=== PATIENT | male | born 1945 | race Caucasian/White ===

== ENCOUNTER 2016-10-20 15:01 | Inpatient (IN) | payer OTHER ==
[~2016-10-20] VITALS: Ht 177.8 cm; Wt 69.6 kg
--- NOTE | ~2016-10-20 | WRIGHTHP ---
[place], [place] PATIENT HISTORY AND PHYSICAL EXAM NAME: [id number] UNIT #: [id number] ROOM: 404 DOCTOR: SANDRA CHARLES MD BIRTHDATE: [birth year] DOS: 10/20/2016 HISTORY OF PRESENT ILLNESS: 1. A 71-year-old gentleman with a past medical history of benign essential hypertension, generalized anxiety disorder, major depression, recurrent GERD and esophagitis, diverticulosis. 2. Mixed hyperlipidemia. 3. History of pneumonia in the past. 4. Hiatal hernia. The patient presented to the Emergency Department with increasing shortness of breath and cough, and was seen by Luis Everett. The symptoms are getting worse for about a week and he was found to have a left lower lobe pneumonia. The patient was diagnosed as having community-acquired pneumonia, dehydration and sepsis and recommended for admission and further management. After admission, the patient is feeling somewhat better, but he is still short of breath, no chest pains, no other GI or urinary symptoms. REVIEW OF SYSTEMS: LUNGS: Shortness of breath and cough. GASTROINTESTINAL: No nausea, vomiting, diarrhea, constipation. CARDIOVASCULAR SYSTEM: No palpitation, no chest pains. SOCIAL HISTORY: Lives with his brother and has two children. Denies smoking cigarettes, alcohol and drug abuse. FAMILY HISTORY: Noncontributory. HOME MEDICATIONS: Simvastatin, Flomax, finasteride, aspirin, Protonix, diltiazem, dicyclomine and lorazepam. ALLERGIES: KNOWN ALLERGIES TO SULFA AND BUSPAR. PHYSICAL EXAMINATION: GENERAL: Alert and oriented, but a very poor historian. Very weak and pale looking gentleman, somewhat short of breath, but in no visible distress. VITAL SIGNS: Blood pressure 106/47, heart rate 86 beats per minute, with respiratory rate as fast as 24 per minute and rectal temperature 99.6 degrees Fahrenheit. HEENT AND NECK: Extraocular movements are intact. Sclerae are anicteric. Oral mucosa is moist and clean. No obvious facial weakness. Neck is supple without any lymphadenopathy. No thyromegaly. No JVD. No carotid arterial bruits. LUNGS: Left lower lung crackles on lung auscultation. CARDIOVASCULAR SYSTEM: Heart rate is regular in rate and rhythm. S1 and S2 normally audible. No significant murmur or any other abnormal cardiac sounds. ABDOMEN: Soft, nontender. No obvious organomegaly. Bowel sounds are present. No obvious herniation. EXTREMITIES: Without significant cyanosis or edema. Warm to touch. CENTRAL NERVOUS SYSTEM: Alert and oriented x 3. Cranial nerves II-XII are intact. Speech is normal. The patient is able to move all extremities. Normal [place], [place] PATIENT HISTORY AND PHYSICAL EXAM NAME: RAVINDER HERNÁNDEZ UNIT #: [id number] ROOM: [facility] DOCTOR: SANDRA CHARLES MD BIRTHDATE: [birth year] muscle strength. Deep tendon reflexes are equal on both sides. Plantars were downgoing. LABORATORY DATA: White cell count 26,700, hemoglobin 10.8, normal platelets. Normal serum electrolytes. Sugars are elevated to 201; 101 at admission. BUN and creatinine elevated at 28 and 1.7. The patient to be treated with IV antibiotics, ceftriaxone and azithromycin and also obtaining consult with Dr. Oconnor, the residential leasing agent. The patient's severe leukocytosis, which will be followed and patient being monitored closely in the [facility] [place]. IMPRESSION: 1. Left lower lobe pneumonia, being treated with antibiotics and the patient is somewhat hypoxemic, saturating 92%-94% at room air without any known lung disease. 2. Mixed hyperlipidemia treated with simvastatin. 3. BPH and urinary retention treated with finasteride and Flomax. 4. Gastroesophageal reflux disease and esophagitis treated with Protonix. 5. Benign essential hypertension treated with diltiazem, which has been continued and blood pressures are being monitored. 6. Generalized anxiety disorder, being treated and controlled with lorazepam at home, which is being continued. SANDRA CHARLES MD CM:HISPHYS:PATIENT HISTORY AND PHYSICAL EXAMINATION 05 11 SANDRA CHARLES MD 10/21/16 2011 interface
--- NOTE | ~2016-10-20 | PR ---
[place], [place] PROGRESS NOTE NAME: RAVINDER HERNÁNDEZ UNIT #: [id number] ROOM: 404 DOCTOR: AUSTIN LANDRY MD BIRTHDATE: [birth year] DOS: 10/24/2016 SUBJECTIVE: The patient is feeling better, does not have any new complaints. He still has a cough, but overall there is some improvement. OBJECTIVE: VITAL SIGNS: Graphics show a pressure of 148/63, pulse of 170, respirations 20, temperature 98.5. LUNGS: Diminished breath sounds. HEART: Regular. ABDOMEN: Soft. EXTREMITIES: Without any edema. Intake, output for the last 24 hours is positive balance of 319 mL. LABS: BMP: Glucose 94, BUN 15, creatinine 1.05. Electrolytes normal. WBC count is 19.6, hemoglobin 11.8, hematocrit 36.6, platelets 512, myelocytes 2, metamyelocytes 3. ASSESSMENT AND PLAN: The patient with a large left lower lobe pneumonia, possible gram negative. The patient continues to be on multiple antibiotics because of low elevation of white cell count and possible systemic inflammatory response. Blood culture so far shows no bacterial growth. Continue the same antibiotics. If the white cell count comes down tomorrow and the chest x-ray shows improvement, then the plan will be to possible discharge him to home tomorrow. AUSTIN LANDRY MD CM:PNTRANS [id number] AUSTIN LANDRY MD 11/26/16 1331 interface
--- NOTE | ~2016-10-20 | PR ---
[place], [place] PROGRESS NOTE NAME: RAVINDER HERNÁNDEZ UNIT #: [id number] ROOM: 404 DOCTOR: CLAUDETTE SCHMITT MD BIRTHDATE: [birth year] DOS: 10/24/2016 SUBJECTIVE: The patient was seen and examined on 10/24/2016. He has been noted with gradual reduction in respiratory symptoms. The patient denies symptoms of abdominal pain. The chest pain has been gradually subsiding. Denies any symptoms of abdominal pain. The patient was also described in reduction of the overall debility symptoms as well with generalized weakness and fatigue. There were no symptoms of hemoptysis. OBJECTIVE: VITAL SIGNS: Normal temperature, respiratory rate 20, heart rate of 82, blood pressure 120/66. Pulse oxygen saturation on room air was 93% saturation. HEENT: Showed no new change. NECK: Supple. CARDIOVASCULAR: S1, S2 audible. LUNGS: Noted without any wheezing. Decreased breath sounds are noted in the left lower lung. ABDOMEN: Soft, nontender. LABORATORY DATA: Cultured the sputum preliminary show normal sathish other noted normal sathish yesterday. BMP this morning were noted as normal. CBC: WBC count 19.6, hemoglobin 11.8, hematocrit 36.6, platelet count 512,000. IMPRESSION: 1. Acute large pneumonia with atypical consolidation in the left lower lobe for this patient still noted with leukocytosis with gradual reduction. 2. The patient with early exacerbation of chronic obstructive pulmonary disease. PLAN OF TREATMENT: Continue antibiotics, bronchodilators, oxygen supplementation. Monitor white cell count. Chest x-ray of the patient was ordered to be repeated on this patient for assessment of the pneumonia progression to make final recommendations on the patient discharge, the antibiotics and other treatment. In the meantime, continue other treatment plan and management and supportive care. [place], [place] PROGRESS NOTE NAME: RAVINDER HERNÁNDEZ UNIT #: [id number] ROOM: 404 DOCTOR: CLAUDETTE SCHMITT MD BIRTHDATE: [birth year] CLAUDETTE TURPIN MD CM:PNTRANS [id number] CLAUDETTE LOYOLA MD 10/25/16 0415 interface
--- NOTE | ~2016-10-20 | PR ---
[place], [place] PROGRESS NOTE NAME: RAVINDER HERNÁNDEZ UNIT #: [id number] ROOM: 404 DOCTOR: CLAUDETTE SCHMITT MD BIRTHDATE: [birth year] DOS: 10/23/2016 PULMONARY PROGRESS NOTE SUBJECTIVE: He has been noted comfortable at this time. Still noted cough with intermittent small amount of sputum expectoration at time. Shortness of breath has been improving. Denies any symptoms of hemoptysis. The chest pain of the patient has been still present, not completely resolved as well. OBJECTIVE: VITAL SIGNS: For the patient, which have been recorded show the temperature of the patient noted as normal, respiratory rate 20, heart rate 95-103, blood pressure 113/57-150/80. Intake for this patient is 1000, output 970 mL. Pulse oxygen saturation on room air 97% saturation. HEENT: Examination shows head was atraumatic. Eyes nonicterus. NECK: Supple. CARDIOVASCULAR SYSTEM: S1, S2 audible. LUNGS: Decreased breath sounds in the left lower lung base. ABDOMEN: Soft, nontender. LABORATORY DATA: Culture of the sputum was noted normal sathish. CBC of the patient on 10/23/2016, WBC count 19.8, hemoglobin 10, hematocrit 30.7, and platelet count 415,000. IMPRESSION: The patient with resolving leukocytosis with acute large pneumonia consolidation, rule out underlying malignancy as well in the left lower lobe with acute exacerbation of chronic obstructive pulmonary disease as well. Chest pain related to current acute pneumonia. PLAN OF TREATMENT: Continue current antibiotic of vancomycin for the coverage of gram-positive organisms. Monitor leukocytosis. Continue bronchodilators for early COPD exacerbation. Supportive therapy, plan of management, other care. The patient might require the antibiotics as an outpatient for about 10-14 days and then reassessment to determine resolution of the current problem or any further workup if necessary for the patient and current abnormality. Left lower lobe abnormality. [place], [place] PROGRESS NOTE NAME: RAVINDER HERNÁNDEZ UNIT #: [id number] ROOM: 404 DOCTOR: CLAUDETTE SCHMITT MD BIRTHDATE: [birth year] CLAUDETTE TURPIN MD CM:PNTRANS [id number] CLAUDETTE LOYOLA MD 11/26/16 1333 interface
--- NOTE | ~2016-10-20 | PR ---
[place], [place] PROGRESS NOTE NAME[id number] UNIT #: [id number] ROOM: 404 DOCTOR: PAPI LOYOLA MD,CLAUDETTE BIRTHDATE: [birth year] DOS: 10/22/2016 PULMONARY FOLLOWUP NOTE SUBJECTIVE: He has been noted with reduction of the sputum expectoration. Shortness of breath for the patient has been noted to have decreased. There were no symptoms of chest pain at the present time. He had a CT scan of the chest that was completed yesterday for assessment of the left lower lobe. The patient denies any symptoms of hemoptysis. OBJECTIVE: VITAL SIGNS: Show normal temperature, respirations 18, heart rate 96, blood pressure 110/68. Intake 3500 mL over 900 mL recorded. Pulse oxygen saturation on room air 92% saturation. HEENT: Examination shows head was atraumatic. Eyes nonicteric. NECK: Supple. CARDIOVASCULAR: S1, S2 audible. LUNGS: Noted with decreased breath sounds in the lower portion of the lungs bilaterally. ABDOMEN: Soft, nontender. LABORATORY DATA: The patient's CBC today: WBC count 30,000, hemoglobin 10.4, hematocrit 32.8, platelet count was normal, 95% segmented neutrophils were noted. The culture of the sputum preliminary showing normal sathish from yesterday. The Gram stain was reported with many white blood cells, few epithelial cells, moderate gram-positive cocci in pairs and chains, and few gram-positive cocci in clusters. IMAGING: CT scan, which has been done for the patient yesterday without contrast, was reviewed, shows evidence of patchy infiltration in left lobe and large area of consolidation with mass-like appearance in the left lower lobe was still noted. Evidence of emphysema change noted. Lack of the contrast of the patient would rather result in limited assessment of the mediastinum, however, there was no gross lymphadenopathy noted. IMPRESSION: 1. The patient who has been currently noted with significant leukocytosis, which has been noted worsened, with acute exacerbation of chronic obstructive pulmonary disease as well as acute pneumonia, currently treated for this patient with intravenous antibiotics. Possibility of mass lesion cannot be completely excluded with current CT scan of the chest appearance. This finding needs to be closely monitored until resolution to exclude any underlying malignancy in that area. 2. Failed outpatient treatment. PLAN OF TREATMENT: The patient will be continued on current treatment with antibiotics. Monitor respiratory status, monitoring of the cultures. Supportive plan and management, other therapy care. Usual treatment. Supportive care. Continuation of bronchodilators as well. Continuation of current antibiotic combination for this patient, and the patient was started on [place], [place] PROGRESS NOTE NAME: RAVINDER HERNÁNDEZ UNIT #: [id number] ROOM: 404 DOCTOR: PAPI LOYOLA MD,CLAUDETTE BIRTHDATE: [birth year] IV vancomycin as well for additional coverage for gram-positive organisms including community-acquired MRSA. CLAUDETTE TURPIN MD CM:PNTRANS [phone] CLAUDETTE LOYOLA MD 10/23/16 0201 interface
--- NOTE | ~2016-10-20 | PR ---
[place], [place] PROGRESS NOTE NAME: [facility]Z [id number] UNIT #: [id number] ROOM: 404 DOCTOR: PAPI LOYOLA MD,CLAUDETTE BIRTHDATE: [birth year] DOS: 10/25/2016 SUBJECTIVE: The patient seen and examined on 10/25/2016. He has been noted with a cough, which has not been completely resolved, but decreased. The chest pain, the patient has been subsiding. He denies symptoms of hemoptysis. OBJECTIVE: VITAL SIGNS: The vital signs of the patient which has been recorded showed the temperature of the patient noted as normal. The respiratory rate of the patient recorded as normal. The respiratory rate of the patient recorded as 18, heart rate 81, blood pressure 122/70-131/64. HEENT: Examination shows head was atraumatic. Eyes: No icterus. NECK: Supple. CARDIOVASCULAR: S1, S2 audible. LUNGS: Noted without any wheeze or crackles at the present time. Breaths are noted mildly decreased bilaterally. ABDOMEN: Soft, nontender. LABORATORY DATA: The chest x-ray of the patient that was done this morning still shows abnormal density in the right lower lobe. IMPRESSION: The patient with recurrent acute suspected pneumonia, rule out malignancy in the left lower lobe. Symptomatically, he has noted improvement, still noted leukocytosis. WBC count of 20.3. PLAN OF TREATMENT: Using antibiotics orally as an outpatient for the next 10 days and outpatient followup will be suggested. The patient will be continued on the previous treatment that he has taken previously for his COPD as well. Further intervention or assessment of the patient will be planned based on the progression of the illness as an outpatient. CLAUDETTE TURPIN MD CM:TAMMI [id number] CLAUDETTE LOYOLA MD 11/26/16 1329 interface
--- NOTE | ~2016-10-20 | PR ---
[place], [place] PROGRESS NOTE NAME: RAVINDER HERNÁNDEZ UNIT #: [id number] ROOM: 404 DOCTOR: AUSTIN LANDRY MD BIRTHDATE: [birth year] DOS: SUBJECTIVE: The patient states that he could not sleep at night because of the continued coughing, is mostly dry, brings up a small amounts of mucus at times. He denies having any fever or chills. Shortness of breath is better. He did order a very good breakfast this morning. OBJECTIVE: VITAL SIGNS: Blood pressure is 112/68, pulse of 96, respirations 18, temperature 97.6. LUNGS: Diminished breath sounds. No wheezes, rales or rhonchi heard this morning. HEART: Regular. ABDOMEN: Soft. EXTREMITIES: Without any edema. CT of the chest yesterday showed patchy consolidation of the left lower lobe. ASSESSMENT AND PLAN: Left lower lobe pneumonia, possible gram negative. Sputum cultures are pending. The patient is on multiple IV antibiotics, which are continued. Elevated white cell count noticed. It has gone up from initial of 20,000 on the . He did come back and went up to 26,000 and has gone up to 30,000. So, we will go ahead and start him on vancomycin IV and a consultation with Dr. Oconnor will be obtained. AUSTIN LANDRY MD CM:PNTRANS [phone] [id number] AUSTIN LANDRY MD 10/22/162228 interface
--- NOTE | ~2016-10-20 | DS ---
[place], [place] DISCHARGE SUMMARY NAME: RAVINDER HERNÁNDEZ UNIT #: [id number] ROOM: 404 DOCTOR: AUSTIN LANDRY MD BIRTHDATE: [birth year] DOS: 10/25/2016 DIAGNOSES: 1. Left lower lobe pneumonia. 2. Generalized anxiety disorder. 3. Benign hypertension. 4. Chronic obstructive pulmonary disease, panacinar emphysema. HOSPITAL COURSE: This patient is a 71-year-old was admitted to the hospital with extremely elevated white cell count of 20,000 and increased shortness of breath, possible systemic inflammatory response and shortness of breath. After admission was placed on multiple antibiotics. Blood cultures and sputum cultures were also sent they have all come back negative. Final is normal sathish on the sputum and blood culture shows no bacterial growth. White cell count continue to go up and peaked about 30,000. IV vancomycin was also added. A CT of the chest was done, which showed left lower lobe pneumonia with consolidation. Dr. Oconnor was consulted. They agreed on the treatment plan. The patient has finally slowly improving. The white cell count has to continue to trend down now it down to 20.3. His cough and shortness of breath has improved and the chest x-ray shows improvement in the left lower lobe pneumonia. So, the plan is to discharge him to home today on p.o. antibiotics, DuoNebs and nebulizer and his home meds. AUSTIN LANDRY MD CM:JESSICA [phone] AUSTIN LANDRY MD 10/25/16 182 interface
--- NOTE | ~2016-10-20 | PR ---
[place], [place] PROGRESS NOTE NAME: RAVINDER HERNÁNDEZ UNIT #: [id number] ROOM: 404 DOCTOR: AUSTIN LANDRY MD BIRTHDATE: [birth year] DOS: 10/23/2016 SUBJECTIVE: The patient is complaining of continued shortness of breath and cough. He does not feel any better since he was admitted. OBJECTIVE: VITAL SIGNS: Blood pressure is 146/71, pulse of 88, respirations 21 and temperature 97.7. LUNGS: Diminished breath sounds. HEART: Regular. ABDOMEN: Soft, nontender. EXTREMITIES: Without any edema. LABORATORY DATA: WBC count is down to 19.8. ASSESSMENT AND PLAN: 1. Left lower lobe pneumonia, possible gram-negative cultures are not available. The white cell count has been trending up all the way from admission lab of 20.2 to 30.0 yesterday. IV vancomycin was started and since then count has come down to 19.8. Dr. Oconnor is already following the patient. 2. Chronic obstructive pulmonary disease without any evidence of exacerbation. 3. Benign hypertension, controlled. The patient will continue to stay here until the white cell count normalizes. AUSTIN LANDRY MD CM:TAMMI [id number] AUSTIN LANDRY MD 10/23/16 1228 interface
--- NOTE | ~2016-10-20 | CON ---
[place], [place] REPORT OF CONSULTATION NAME: RAVINDER HERNÁNDEZ UNIT #: [id number] ROOM: 404 DOCTOR: PAPI LOYOLA MDCLAUDETTE BIRTHDATE: [birth year] DOS: 10/21/2016 PULMONARY CONSULTATION REASON FOR CONSULTATION: To assess the patient for acute pneumonia and ongoing acute respiratory complaints. HISTORY OF PRESENT ILLNESS: This is a 71-year-old white male who came into the Emergency Room for this patient as the patient was complaining of symptoms of acute shortness of breath with coughing with sputum expectoration described as brownish in color. The patient was seen by Dr. Herrera and has been prescribed antibiotics. He was also running fever at home. Shortness of breath were noted worsened. The patient has been given antibiotic, which was not showing any improvement. The patient stated he has lost about 5-6 pounds of body weight as well. He denies any symptoms of hemoptysis. He does complain of a short nonspecific pain which described in the anterior portion of the chest, which has been resolved. REVIEW OF SYSTEMS: CONSTITUTIONAL SYMPTOMS: He denies any symptoms of chills, but complains of fever and decreased appetite. The patient has lost about 5-6 pounds of body weight in the past one week. EYES: Denies any burning, redness, or tenderness. NECK, EARS, NOSE, AND THROAT SYMPTOMS: No sore throat, hoarseness, or otalgia. CARDIOVASCULAR: Denies anginal pain, edema or pain of the lower extremities or palpitations. GASTROINTESTINAL: Denies dysphagia, nausea, vomiting, diarrhea, abdominal pain, hematemesis, melena, or hematochezia. GENITOURINARY: Denies dysuria, suprapubic pain, hematuria. SKIN: No lesions or rashes. MUSCULOSKELETAL: No acute joint deformities. CENTRAL NERVOUS SYSTEM: Denies dizziness, headache, diplopia or syncopal episodes. Remaining systems were reviewed with the patient, they were noted all negative. PAST MEDICAL HISTORY: 1. The patient was known with history of gastroesophageal reflux. 2. BPH. 3. Generalized anxiety disorder. 4. Hypercholesterolemia. 5. Essential hypertension. SOCIAL HISTORY: The patient is , has three children. He has been noted with 20 years of tobacco use about quarter pack of cigarettes per day that was discontinued in 2008. The patient was rather noted with work in the [employer] and [employer] intermittently for several years. FAMILY HISTORY: Mother at 69 years old, complication of congestive heart failure. Father at 73 years old from complication of coronary artery [place], [place] REPORT OF CONSULTATION NAME: RAVINDER HERNÁNDEZ UNIT #: [id number] ROOM: 404 DOCTOR: PAPI LOYOLA MD,CLAUDETTE BIRTHDATE: [birth year] disease, and end-stage renal failure. HOME MEDICATIONS: The patient were noted use of dicyclomine, iron, finasteride, Flomax, aspirin, lorazepam, Protonix, lovastatin, multivitamin, Bentyl. DRUG ALLERGY: NOTED. 1. SULFA DRUGS. 2. BUSPAR. PHYSICAL EXAMINATION: GENERAL: This is a 71-year-old white male who has been currently noted awake and alert without any distress. VITAL SIGNS: Height for noted 5 feet 10 inches, weight of 153 pounds, BMI 22.0. Vital signs showed the temperature highest of 99.6 degree Fahrenheit to normal temperature, respiratory rate range between 24-20, heart rate of 75-83, blood pressure 110/59-98/56. The pulse oxygen saturation for the patient recorded as saturation on room air 95% saturation. Intake is 900, the output 750 mL. HEENT: Examination shows head was atraumatic. Eyes: No icterus. Neck was supple. CARDIOVASCULAR: S1, S2 audible. NEUROLOGIC: Cranial nerves 2-12 intact. No focal deficit. MUSCULOSKELETAL: No deformities. SKIN: No lesions or rashes. LABORATORY DATA: Lactic acid 0.7 on admission. Rapid Influenza A and B, nasal washing antigen negative on 10/20/2016. CBC on 10/20/2016, WBC count 20.2, hemoglobin 11.8, hematocrit 35.7, platelet count was normal. The CMP for this patient on 10/20/2016, BUN of 28, creatinine 1.74, glucose was normal, sodium 135. BMP of the patient this morning, glucose 201, BUN and creatinine was normal. Remaining electrolytes normal. CBC this morning, WBC count 26.7, hemoglobin 10.8, hematocrit 32.9, platelet count 270,000, 90% segmented neutrophils. Gram stain of the sputum for this patient shows many white blood cells, few epithelial cells, moderate gram-positive cocci in pairs and chains with few gram-positive cocci in clusters. The chest x-ray of the patient that was done for this patient on 10/20/2016 on admission was reviewed, shows evidence of consolidation in the left lower lobe of the patient with rounded configuration. Prominent right hilar areas noted with changes, hyperinflation and increased pulmonary venous congestion markings. The chest x-ray was compared to the previous chest x-ray which was done for this patient on 09/07/2016 shows changes of COPD, hyperinflation without any acute pulmonary abnormalities. Left diaphragmatic pleural plaque cannot be completely excluded. IMPRESSION: 1. The patient will be currently admitted to the hospital with symptoms of fever, but also complained of weight loss, atypical configuration in the left lower lobe and possibility of acute pneumonia with rounded atelectasis would be considered; however, the possibility of mass lesion cannot be completely excluded. 2. Acute exacerbation of chronic obstructive pulmonary disease for this patient [place], [place] REPORT OF CONSULTATION NAME: RAVINDER HERNÁNDEZ UNIT #: [id number] ROOM: [facility] DOCTOR: PAPI LOYOLA MD,CLAUDETTE BIRTHDATE: [birth year] was also noted with past history of short term tobacco use. 3. History of benign prostatic hypertrophy as well. 4. The organism to be considered for nonaspiration with gram-positive infection. PLAN OF TREATMENT: Monitor results of the sputum culture. Continue current antibiotics. Order CT scan of the chest for more definitive assessment for this patient, current abnormality noted on the chest x-ray. Monitoring of the current progression of the abnormality of the left lower lobe closely to rule out any malignancy as well. Supportive therapy plan and management. Bronchodilators will be continued at this time should suffice for medical management of early exacerbation of COPD, add corticosteroids in case of worsening of the wheezing and other symptom related to COPD exacerbation. Pulmonary consultation and evaluation and management. Thank you for allowing me to participate in the care of this patient. CLAUDETTE TURPIN MD CM:CONSTR:REPORT OF CONSULTATION 1402 11/26/16 1343 interface
--- NOTE | ~2016-10-20 | PR ---
[place], [place] PROGRESS NOTE NAME: RAVINDER HERNÁNDEZ UNIT #: [id number] ROOM: 404 DOCTOR: AUSTIN LANDRY MD BIRTHDATE: [birth year] DOS: 10/25/2016 SUBJECTIVE: The patient is doing fine without any complaints this morning. OBJECTIVE: VITAL SIGNS: Pressure is 122/70, pulse of 91, respirations 18, temperature 97.4. LUNGS: Clear. HEART: Regular. ABDOMEN: Soft, nontender. EXTREMITIES: Without any edema. ASSESSMENT AND PLAN: 1. Large left lower lobe pneumonia. The patient is possible gram negative, but the patient is definitely improving with improvement in the leukocytosis. Repeat chest x-ray on the shows improvement in the left lower lobe pneumonia and since the white cell count is also trending down, we will discharge the patient to home today on p.o. antibiotics. 2. Hypertension, controlled. AUSTIN LANDRY MD CM:PNTRANS [id number] AUSTIN LANDRY MD 10/25/16 2346 interface
[~2016-10-20 15:01] MED LIST: ASPIRIN81 M1 PO; ATARAX25 MG PO; ATIVAN1 MG PO; BENTYL10 MG PO; CENTRUM SILVER1 TA1 PO; CIPRO500 MG PO; DAILY MULTIPLE1 TA6 PO; DILTIAZEM HCL60 MG PO; DILTIAZEM120 MG PO; DILTIAZEM60 MG PO; FERREX 150150 MG PO; FLOMAX0.4 MG PO; HYDROCODONE BIT1 T11 PO; LOVASTATIN10 MG PO; PAROXETINE HCL10 MG PO; PAXIL10 MG PO; PREDNICOT20 MG PO; PREDNISONE10 MG PO; PREDNISONE50 MG PO; PROSCAR5 MG PO; PROTONIX40 MG PO; VITAMIN D2 PO; ZOFRAN ODT4 MG SL
[2016-10-20 15:06] VITALS: BP 118/55
[2016-10-20 15:29] LABS: BASO # 0.1 10*3/uL (0.0-0.1); BASO % 0.2 % (0.0-1.0); EOS # 0.1 10*3/uL (0.0-0.4); EOS % 0.5 % (1.0-4.0); HEMATOCRIT 35.7 % (42.0-52.0); HEMOGLOBIN 11.8 g/dl (14.0-18.0); IG # 0.2 10*3/uL (0.0-0.1); LYMPH % 9.8 % (27.0-41.0); MEAN CORPUSCULAR HGB 30.4 pg (27.0-31.0); MEAN CORPUSCULAR HGB CONC 33.1 g/dl (33.0-37.0); MEAN PLATELET VOLUME 9.3 fl (9.6-12.3); MONO # 1.4 10*3/uL (0.1-1.0); MONO % 6.9 % (3.0-9.0); NEUT # 16.4 10*3/uL (2.3-7.9); NEUT % 81.6 % (47.0-73.0); PLATELET COUNT AUTOMATED 354 10*3/uL (130-400); RED BLOOD COUNT 3.88 10*6/uL (4.50-5.90); RED CELL DISTRI WIDTH 12.4 % (0-14.5); WHITE BLOOD COUNT 20.2 10*3/uL (4.8-10.8)
[2016-10-20 15:47] LABS: ALBUMIN 3.1 gm/dl (3.1-4.5); BILIRUBIN, TOTAL 0.7 mg/dl (0.2-1.0); TOTAL PROTEIN 8.3 gm/dL (6.4-8.2)
[2016-10-20 16:48] VITALS: BP 120/60
[2016-10-20 18:33] VITALS: BP 115/67
[2016-10-20 20:00] VITALS: BP 109/57
[2016-10-20 22:00] VITALS: BP 109/57
[2016-10-21] VITALS: BP 110/59
[2016-10-21 04:00] VITALS: BP 98/56
[2016-10-21 07:38] LABS: HEMATOCRIT 32.9 % (42.0-52.0); HEMOGLOBIN 10.8 g/dl (14.0-18.0); MEAN CELL VOLUME 92.7 fl (80.0-94.0); MEAN CORPUSCULAR HGB 30.4 pg (27.0-31.0); MEAN CORPUSCULAR HGB CONC 32.8 g/dl (33.0-37.0); PLATELET COUNT AUTOMATED 370 10*3/uL (130-400); RED BLOOD COUNT 3.55 10*6/uL (4.50-5.90); RED CELL DISTRI WIDTH 12.4 % (0-14.5); WHITE BLOOD COUNT 26.7 10*3/uL (4.8-10.8)
[2016-10-21 07:59] LABS: BUN 21 mg/dl (7-24); CARBON DIOXIDE 25 mmol/L (21-32); CHLORIDE 104 mmol/L (98-107); EST GLOM FILT AFRICAN AMERICAN > 60 ml/min; GLUCOSE 201 mg/dL (65-99); POTASSIUM 3.6 mmol/L (3.5-5.1); SODIUM 142 mmol/L (136-145)
[2016-10-21 08:00] VITALS: BP 100/58
[2016-10-21 08:02] LABS: LYMPHOCYTE # 0.8 10*3/uL (1.3-4.4); MONOCYTE # 0.8 10*3/uL (0.1-1.0); NEUTROPHIL # 25.1 10*3/uL (2.3-7.9); NEUTROPHILS 94 % (47-73); PLATELET SUFFICIENCY NORMAL (NORMAL); TOTAL CELLS COUNTED 100 #CELLS
[2016-10-21 12:00] VITALS: BP 99/56
[2016-10-21 16:00] VITALS: BP 106/47
[2016-10-21 20:00] VITALS: BP 104/51
[2016-10-22] VITALS: BP 126/53
[2016-10-22 07:42] LABS: HEMATOCRIT 32.8 % (42.0-52.0); HEMOGLOBIN 10.4 g/dl (14.0-18.0); MEAN CELL VOLUME 95.3 fl (80.0-94.0); MEAN CORPUSCULAR HGB 30.2 pg (27.0-31.0); MEAN CORPUSCULAR HGB CONC 31.7 g/dl (33.0-37.0); MEAN PLATELET VOLUME 10.1 fl (9.6-12.3); PLATELET COUNT AUTOMATED 394 10*3/uL (130-400); RED BLOOD COUNT 3.44 10*6/uL (4.50-5.90); RED CELL DISTRI WIDTH 12.6 % (0-14.5)
[2016-10-22 08:00] VITALS: BP 112/68
[2016-10-22 08:08] LABS: LYMPHOCYTE # 1.2 10*3/uL (1.3-4.4); MONOCYTE # 0.3 10*3/uL (0.1-1.0); NEUTROPHIL # 28.5 10*3/uL (2.3-7.9); NEUTROPHILS 95 % (47-73); PLATELET SUFFICIENCY NORMAL (NORMAL); TOTAL CELLS COUNTED 100 #CELLS
[2016-10-22 12:00] VITALS: BP 112/74
[2016-10-22 16:00] VITALS: BP 108/66
[2016-10-22 20:00] VITALS: BP 120/62
[2016-10-23] VITALS: BP 146/71
[2016-10-23 06:08] LABS: HEMATOCRIT 30.7 % (42.0-52.0); MEAN CELL VOLUME 93.6 fl (80.0-94.0); MEAN CORPUSCULAR HGB 30.5 pg (27.0-31.0); MEAN CORPUSCULAR HGB CONC 32.6 g/dl (33.0-37.0); MEAN PLATELET VOLUME 9.3 fl (9.6-12.3); PLATELET COUNT AUTOMATED 415 10*3/uL (130-400); RED BLOOD COUNT 3.28 10*6/uL (4.50-5.90); RED CELL DISTRI WIDTH 12.8 % (0-14.5); WHITE BLOOD COUNT 19.8 10*3/uL (4.8-10.8)
[2016-10-23 07:17] LABS: LYMPHOCYTE # 2.6 10*3/uL (1.3-4.4); NEUTROPHIL # 16.2 10*3/uL (2.3-7.9); NEUTROPHILS 82 % (47-73); TOTAL CELLS COUNTED 100 #CELLS
[2016-10-23 07:18] LABS: PLATELET SUFFICIENCY NORMAL (NORMAL); TOXIC GRANULATION SLIGHT
[2016-10-23 08:00] VITALS: BP 146/70
[2016-10-23 09:05] VITALS: BP 150/80
[2016-10-23 12:00] VITALS: BP 113/57
[2016-10-23 16:00] VITALS: BP 135/69
[2016-10-23 20:00] VITALS: BP 130/62
[2016-10-24] VITALS: BP 148/63
[2016-10-24 06:05] LABS: HEMATOCRIT 36.6 % (42.0-52.0); HEMOGLOBIN 11.8 g/dl (14.0-18.0); MEAN CELL VOLUME 93.4 fl (80.0-94.0); MEAN CORPUSCULAR HGB 30.1 pg (27.0-31.0); MEAN CORPUSCULAR HGB CONC 32.2 g/dl (33.0-37.0); MEAN PLATELET VOLUME 9.4 fl (9.6-12.3); PLATELET COUNT AUTOMATED 512 10*3/uL (130-400); RED BLOOD COUNT 3.92 10*6/uL (4.50-5.90); RED CELL DISTRI WIDTH 12.7 % (0-14.5); WHITE BLOOD COUNT 19.6 10*3/uL (4.8-10.8)
[2016-10-24 06:12] LABS: BUN 15 mg/dl (7-24); CARBON DIOXIDE 32 mmol/L (21-32); CHLORIDE 97 mmol/L (98-107); EST GLOM FILT AFRICAN AMERICAN > 60 ml/min; GLUCOSE 94 mg/dL (65-99); SODIUM 139 mmol/L (136-145)
[2016-10-24 06:53] LABS: EOSINOPHIL # 0.6 10*3/uL (0-0.4); EOSINOPHILS 3 % (1-4); LYMPHOCYTE # 2.4 10*3/uL (1.3-4.4); METAMYELOCYTES 3 % (0-0); MONOCYTE # 1.4 10*3/uL (0.1-1.0); MYELOCYTES 2 % (0-0); NEUTROPHIL # 14.3 10*3/uL (2.3-7.9); NEUTROPHILS 73 % (47-73); PLATELET SUFFICIENCY HIGH (NORMAL); TOTAL CELLS COUNTED 100 #CELLS
[2016-10-24 08:00] VITALS: BP 128/66
[2016-10-24 12:00] VITALS: BP 111/51
[2016-10-24 16:00] VITALS: BP 116/59
[2016-10-24 20:00] VITALS: BP 128/68
[2016-10-25] VITALS: BP 131/64
[2016-10-25 06:10] LABS: HEMOGLOBIN 11.7 g/dl (14.0-18.0); MEAN CELL VOLUME 95.1 fl (80.0-94.0); MEAN CORPUSCULAR HGB 30.1 pg (27.0-31.0); MEAN CORPUSCULAR HGB CONC 31.6 g/dl (33.0-37.0); MEAN PLATELET VOLUME 9.5 fl (9.6-12.3); PLATELET COUNT AUTOMATED 544 10*3/uL (130-400); RED BLOOD COUNT 3.89 10*6/uL (4.50-5.90); RED CELL DISTRI WIDTH 12.6 % (0-14.5); WHITE BLOOD COUNT 20.3 10*3/uL (4.8-10.8)
[2016-10-25 06:37] LABS: BUN 17 mg/dl (7-24); CARBON DIOXIDE 31 mmol/L (21-32); CHLORIDE 100 mmol/L (98-107); EST GLOM FILT AFRICAN AMERICAN > 60 ml/min; GLUCOSE 117 mg/dL (65-99); POTASSIUM 4.2 mmol/L (3.5-5.1); SODIUM 139 mmol/L (136-145)
[2016-10-25 07:13] LABS: EOSINOPHIL # 0.6 10*3/uL (0-0.4); EOSINOPHILS 3 % (1-4); LYMPHOCYTE # 2.2 10*3/uL (1.3-4.4); METAMYELOCYTES 1 % (0-0); MONOCYTE # 0.4 10*3/uL (0.1-1.0); MYELOCYTES 1 % (0-0); NEUTROPHIL # 16.6 10*3/uL (2.3-7.9); NEUTROPHILS 82 % (47-73); PLATELET SUFFICIENCY HIGH (NORMAL); TOTAL CELLS COUNTED 100 #CELLS
[2016-10-25 08:00] VITALS: BP 122/70
[2016-10-25] MEDS ORDERED: CIPRO500 MG PO (08:38)
[2016-10-25] MEDS ORDERED: AEROECLIPSE NEB1 DEV NEB (08:40)
[2016-10-25] MEDS ORDERED: DUONEB 3 MG/3 ML3 M1 INH (08:40)
== END 2016-10-25 10:36 | disposition home or self-care (01) | DRG 193 ==
LOC: ED 15:01 → 4E 16:57 → EDHOLD 16:57 → 4E 17:51
PROVIDERS: Internal Medicine; Nurse Practitioner Family
DX: J18.9 Pneumonia, unspecified organism (principal); N17.0 Acute kidney failure with tubular necrosis; J44.0 Chronic obstructive pulmonary disease with (acute) lower respiratory infection; J44.1 Chronic obstructive pulmonary disease with (acute) exacerbation; I10 Essential (primary) hypertension; F41.1 Generalized anxiety disorder; E78.2 Mixed hyperlipidemia; K44.9 Diaphragmatic hernia without obstruction or gangrene; N40.0 Benign prostatic hyperplasia without lower urinary tract symptoms; K21.0 Gastro-esophageal reflux disease with esophagitis; D72.829 Elevated white blood cell count, unspecified; Z79.899 Other long term (current) drug therapy; Z79.82 Long term (current) use of aspirin; Z88.2 Allergy status to sulfonamides; Z88.8 Allergy status to other drugs, medicaments and biological substances; Z82.49 Family history of ischemic heart disease and other diseases of the circulatory system

== ENCOUNTER → 2017-05-04 | Outpatient (CLI) | payer OTHER ==
[~2017-05-04] MED LIST changes: +AEROECLIPSE NEB1 DEV NEB; +DUONEB 3 MG/3 ML3 M1 INH
== END | disposition home or self-care (01) ==
LOC: LAB 12:53
DX: R19.7 Diarrhea, unspecified (principal)

== ENCOUNTER 2017-06-13 11:48 | Emergency (ER) | payer OTHER ==
[~2017-06-13] VITALS: Ht 177.8 cm; Wt 69.9 kg
[2017-06-13 13:16] LABS: BASO % 0.3 % (0.0-1.0); EOS # 0.3 10*3/uL (0.0-0.4); EOS % 2.9 % (1.0-4.0); LYMPH # 1.9 10*3/uL (1.3-4.4); LYMPH % 18.4 % (27.0-41.0); MEAN CELL VOLUME 96.6 fl (80.0-94.0); MEAN CORPUSCULAR HGB 31.4 pg (27.0-31.0); MEAN CORPUSCULAR HGB CONC 32.5 g/dl (33.0-37.0); MEAN PLATELET VOLUME 10.1 fl (9.6-12.3); MONO # 0.9 10*3/uL (0.1-1.0); MONO % 8.9 % (3.0-9.0); NEUT % 69.2 % (47.0-73.0); PLATELET COUNT AUTOMATED 216 10*3/uL (130-400); RED BLOOD COUNT 4.14 10*6/uL (4.50-5.90); WHITE BLOOD COUNT 10.1 10*3/uL (4.8-10.8)
[2017-06-13 13:36] LABS: ALBUMIN 3.8 gm/dl (3.1-4.5); ALKALINE PHOSPHATASE 77 U/L (45-117); BUN 15 mg/dl (7-24); CHLORIDE 103 mmol/L (98-107); CREATININE 1.17 mg/dL (0.70-1.30); MAGNESIUM 2.6 mg/dL (1.5-2.1); POTASSIUM 4.6 mmol/L (3.5-5.1); SGOT/AST 19 IU/L (3-35); SGPT/ALT 30 U/L (12-78); SODIUM 139 mmol/L (136-145); TOTAL PROTEIN 8.1 gm/dL (6.4-8.2); URIC ACID 5.5 mg/dL (3.5-7.2)
[2017-06-13] MEDS ORDERED: EC NAPROSYN500 MG PO (16:03)
== END 2017-06-13 16:59 | disposition home or self-care (01) ==
LOC: ED 11:48
PROVIDERS: Emergency Medicine
DX: M65.9 Synovitis and tenosynovitis, unspecified (principal); M25.422 Effusion, left elbow; I48.91 Unspecified atrial fibrillation; Z98.890 Other specified postprocedural states; Z79.82 Long term (current) use of aspirin; Z79.899 Other long term (current) drug therapy; Z90.49 Acquired absence of other specified parts of digestive tract; Z88.8 Allergy status to other drugs, medicaments and biological substances; Z88.1 Allergy status to other antibiotic agents; Z88.5 Allergy status to narcotic agent; Z87.01 Personal history of pneumonia (recurrent)

== ENCOUNTER 2019-09-17 11:56 | Emergency (ER) | payer OTHER ==
[~2019-09-17] VITALS: Ht 177.8 cm; Wt 70.3 kg
[~2019-09-17 11:56] MED LIST changes: +DICYCLOMINE HYD10 MG PO; +EC NAPROSYN500 MG PO; +PAROXETINE20 MG PO; +TRAZODONE50 MG PO; +TYLENOL EXTRA500 M2 PO; +VITAMIN D-32000 UNI1 PO
[2019-09-17 13:00] LABS: BASO # 0.1 10*3/uL (0.0-0.1); BASO % 0.6 % (0.0-1.0); EOS # 0.3 10*3/uL (0.0-0.4); EOS % 3.6 % (1.0-4.0); LYMPH % 22.1 % (27.0-41.0); MEAN CELL VOLUME 96.6 fl (80.0-94.0); MEAN CORPUSCULAR HGB 31.4 pg (27.0-31.0); MEAN CORPUSCULAR HGB CONC 32.5 g/dl (33.0-37.0); MEAN PLATELET VOLUME 9.7 fl (9.6-12.3); MONO # 0.8 10*3/uL (0.1-1.0); MONO % 8.6 % (3.0-9.0); NEUT # 5.8 10*3/uL (2.3-7.9); NEUT % 64.9 % (47.0-73.0); PLATELET COUNT AUTOMATED 256 10*3/uL (130-400); RED BLOOD COUNT 4.14 10*6/uL (4.50-5.90); RED CELL DISTRI WIDTH 12.1 % (0-14.5); WHITE BLOOD COUNT 8.9 10*3/uL (4.8-10.8)
[2019-09-17 13:16] LABS: ALBUMIN 3.9 gm/dl (3.1-4.5); ALKALINE PHOSPHATASE 73 U/L (45-117); BUN 15 mg/dl (7-24); CHLORIDE 107 mmol/L (98-107); CREATININE 1.14 mg/dL (0.70-1.30); SGOT/AST 17 IU/L (3-35); SGPT/ALT 27 U/L (12-78); SODIUM 140 mmol/L (136-145); URIC ACID 5.5 mg/dL (3.5-7.2)
[2019-09-17] MEDS ORDERED: NORCO 5-325 TA1 EACH PO (13:51)
[2019-09-17] MEDS ORDERED: PREDNISONE50 MG PO (13:51)
== END 2019-09-17 14:01 | disposition home or self-care (01) ==
LOC: ED 11:56
PROVIDERS: Emergency Medicine
DX: M65.842 Other synovitis and tenosynovitis, left hand (principal); G89.29 Other chronic pain; I10 Essential (primary) hypertension; K21.9 Gastro-esophageal reflux disease without esophagitis; E78.00 Pure hypercholesterolemia, unspecified; Z91.048 Other nonmedicinal substance allergy status; Z88.2 Allergy status to sulfonamides; Z88.8 Allergy status to other drugs, medicaments and biological substances; Z79.899 Other long term (current) drug therapy; Z79.82 Long term (current) use of aspirin

== ENCOUNTER → 2020-07-16 | Outpatient (CLI) | payer OTHER ==
[~2020-07-16] MED LIST changes: +NORCO 5-325 TA1 EACH PO
[2020-07-16 10:30] LABS: BASO % 0.6 % (0.0-1.0); EOS # 0.2 10*3/uL (0.0-0.4); EOS % 3.2 % (1.0-4.0); HEMATOCRIT 41.8 % (42.0-52.0); LYMPH # 1.8 10*3/uL (1.3-4.4); LYMPH % 25.7 % (27.0-41.0); MEAN CELL VOLUME 96.1 fl (80.0-94.0); MEAN CORPUSCULAR HGB 30.1 pg (27.0-31.0); MEAN CORPUSCULAR HGB CONC 31.3 g/dl (33.0-37.0); MEAN PLATELET VOLUME 9.9 fl (9.6-12.3); MONO # 0.6 10*3/uL (0.1-1.0); MONO % 7.9 % (3.0-9.0); NEUT # 4.4 10*3/uL (2.3-7.9); NEUT % 62.3 % (47.0-73.0); PLATELET COUNT AUTOMATED 253 10*3/uL (130-400); RED BLOOD COUNT 4.35 10*6/uL (4.50-5.90); RED CELL DISTRI WIDTH 12.7 % (0-14.5)
[2020-07-16 10:55] LABS: ALKALINE PHOSPHATASE 66 U/L (45-117); BUN 14 mg/dl (7-24); CHLORIDE 107 mmol/L (98-107); CHOLESTEROL 191 mg/dL (<200); CREATININE 1.32 mg/dL (0.70-1.30); FREE T4 0.86 ng/dl (0.76-1.46); HDL CHOLESTEROL 67 mg/dl (40-60); LDL CHOLESTEROL 108 mg/dL (9-159); POTASSIUM 4.3 mmol/L (3.5-5.1); SGOT/AST 21 IU/L (3-35); SGPT/ALT 26 U/L (12-78); SODIUM 143 mmol/L (136-145); TOTAL PROTEIN 7.7 gm/dL (6.4-8.2); TRIGLYCERIDES 80 mg/dl (<150); VLDL CHOLESTEROL 16 mg/dL (6-40)
[2020-07-16 11:00] LABS: THYROID STIM HORMONE (HS) 0.907 uIU/ml (0.358-4.75)
[2020-07-16 11:01] LABS: VITAMIN D, 25-HYDROXY 64.6 ng/mL (30-100)
== END | disposition home or self-care (01) ==
LOC: LAB 10:03
PROVIDERS: ATTEND Internal Medicine
DX: Z12.5 Encounter for screening for malignant neoplasm of prostate (principal); Z00.00 Encounter for general adult medical examination without abnormal findings; I10 Essential (primary) hypertension; E78.2 Mixed hyperlipidemia; E55.9 Vitamin D deficiency, unspecified

== ENCOUNTER → 2020-07-30 | Outpatient (CLI) | payer OTHER ==
[2020-07-30 11:54] LABS: BASO # 0.1 10*3/uL (0.0-0.1); BASO % 0.9 % (0.0-1.0); EOS # 0.3 10*3/uL (0.0-0.4); EOS % 4.6 % (1.0-4.0); HEMATOCRIT 42.2 % (42.0-52.0); LYMPH # 1.7 10*3/uL (1.3-4.4); MEAN CELL VOLUME 95.9 fl (80.0-94.0); MEAN CORPUSCULAR HGB 29.5 pg (27.0-31.0); MEAN CORPUSCULAR HGB CONC 30.8 g/dl (33.0-37.0); MEAN PLATELET VOLUME 9.6 fl (9.6-12.3); MONO # 0.5 10*3/uL (0.1-1.0); MONO % 8.4 % (3.0-9.0); NEUT # 3.1 10*3/uL (2.3-7.9); NEUT % 54.9 % (47.0-73.0); PLATELET COUNT AUTOMATED 260 10*3/uL (130-400); RED CELL DISTRI WIDTH 12.4 % (0-14.5); WHITE BLOOD COUNT 5.6 10*3/uL (4.8-10.8)
[2020-07-30 12:05] LABS: ACT PARTIAL THROMBO TIME 28.9 SECONDS (20.0-32.1)
[2020-07-30 12:21] LABS: ALKALINE PHOSPHATASE 69 U/L (45-117); BUN 12 mg/dl (7-24); CHLORIDE 105 mmol/L (98-107); CREATININE 1.27 mg/dL (0.70-1.30); POTASSIUM 4.4 mmol/L (3.5-5.1); SGOT/AST 19 IU/L (3-35); SGPT/ALT 25 U/L (12-78); SODIUM 142 mmol/L (136-145); TOTAL PROTEIN 7.7 gm/dL (6.4-8.2)
== END | disposition home or self-care (01) ==
LOC: LAB 11:27
PROVIDERS: ATTEND Urology
DX: Z01.818 Encounter for other preprocedural examination (principal); J44.9 Chronic obstructive pulmonary disease, unspecified; Z79.01 Long term (current) use of anticoagulants

== ENCOUNTER → 2021-04-24 | Outpatient (CLI) | payer OTHER | END | disposition home or self-care (01) | LOC: LAB 09:44 | PROVIDERS: ATTEND Urology | DX: N40.1 Benign prostatic hyperplasia with lower urinary tract symptoms (principal) ==

== ENCOUNTER → 2021-07-16 | Outpatient (CLI) | payer OTHER ==
[2021-07-16 14:18] LABS: BASO % 0.6 % (0.0-1.0); EOS # 0.3 10*3/uL (0.0-0.4); HEMATOCRIT 39.7 % (42.0-52.0); LYMPH # 1.8 10*3/uL (1.3-4.4); MEAN CELL VOLUME 97.1 fl (80.0-94.0); MEAN CORPUSCULAR HGB 30.1 pg (27.0-31.0); MONO # 0.5 10*3/uL (0.1-1.0); MONO % 8.1 % (3.0-9.0); NEUT # 3.6 10*3/uL (2.3-7.9); NEUT % 58.1 % (47.0-73.0); PLATELET COUNT AUTOMATED 225 10*3/uL (130-400); RED BLOOD COUNT 4.09 10*6/uL (4.50-5.90); RED CELL DISTRI WIDTH 12.4 % (0-14.5); WHITE BLOOD COUNT 6.2 10*3/uL (4.8-10.8)
[2021-07-16 14:36] LABS: ALBUMIN 3.7 gm/dl (3.1-4.5); CREATININE 1.46 mg/dL (0.70-1.30); FREE T4 0.86 ng/dl (0.76-1.46); POTASSIUM 4.1 mmol/L (3.5-5.1)
[2021-07-16 14:40] LABS: THYROID STIM HORMONE (HS) 1.14 uIU/ml (0.358-4.75)
[2021-07-16 15:27] LABS: VITAMIN D, 25-HYDROXY 61.7 ng/mL (30-100)
== END | disposition home or self-care (01) ==
LOC: LAB 13:46
PROVIDERS: ATTEND Internal Medicine
DX: E55.9 Vitamin D deficiency, unspecified (principal); I10 Essential (primary) hypertension; R73.9 Hyperglycemia, unspecified; E78.2 Mixed hyperlipidemia

== ENCOUNTER → 2021-07-28 | Outpatient (CLI) | payer OTHER | END | disposition home or self-care (01) | LOC: US 13:23 | PROVIDERS: ATTEND Internal Medicine | DX: I65.23 Occlusion and stenosis of bilateral carotid arteries (principal); R42 Dizziness and giddiness ==

== ENCOUNTER → 2021-08-10 | Outpatient (CLI) | payer OTHER | END | disposition home or self-care (01) | LOC: LAB 10:30 | PROVIDERS: ATTEND Urology | DX: C61 Malignant neoplasm of prostate (principal) ==

== ENCOUNTER → 2021-08-13 | Outpatient (CLI) | payer OTHER | END | disposition home or self-care (01) | LOC: US 08:51 | PROVIDERS: ATTEND Internal Medicine | DX: E04.1 Nontoxic single thyroid nodule (principal) ==

== ENCOUNTER 2021-08-29 07:24 | Emergency (ER) | payer OTHER ==
[~2021-08-29] VITALS: Ht 177.8 cm; Wt 68.0 kg
== END 2021-08-29 09:21 | disposition home or self-care (01) ==
LOC: ED 07:24
DX: S63.502A Unspecified sprain of left wrist, initial encounter (principal); Z88.2 Allergy status to sulfonamides; Z79.899 Other long term (current) drug therapy; Z79.82 Long term (current) use of aspirin; W18.39XA Other fall on same level, initial encounter; Y93.89 Activity, other specified; Y92.89 Other specified places as the place of occurrence of the external cause; Y99.8 Other external cause status

== ENCOUNTER → 2021-12-17 | Outpatient (CLI) | payer OTHER | END | disposition home or self-care (01) | LOC: LAB 13:28 | PROVIDERS: ATTEND Urology | DX: C61 Malignant neoplasm of prostate (principal) ==

== ENCOUNTER 2022-01-24 14:05 | Emergency (ER) | payer OTHER ==
[~2022-01-24] VITALS: Wt 70.3 kg
[2022-01-24] MEDS ORDERED: KENALOG 0.025%15 GM T (14:24)
== END 2022-01-24 14:42 | disposition home or self-care (01) ==
LOC: ED 14:05
DX: L25.9 Unspecified contact dermatitis, unspecified cause (principal); Z88.1 Allergy status to other antibiotic agents; Z88.8 Allergy status to other drugs, medicaments and biological substances; Z79.899 Other long term (current) drug therapy; Z79.82 Long term (current) use of aspirin; Z98.890 Other specified postprocedural states

== ENCOUNTER → 2022-04-16 | Outpatient (CLI) | payer OTHER ==
[~2022-04-16] MED LIST changes: +KENALOG 0.025%15 GM T
[2022-04-16 11:01] LABS: BASO % 0.7 % (0.0-1.0); EOS # 0.3 10*3/uL (0.0-0.4); EOS % 4.8 % (1.0-4.0); HEMATOCRIT 40.6 % (42.0-52.0); LYMPH # 1.6 10*3/uL (1.3-4.4); LYMPH % 26.1 % (27.0-41.0); MEAN CELL VOLUME 98.5 fl (80.0-94.0); MEAN CORPUSCULAR HGB 30.8 pg (27.0-31.0); MEAN CORPUSCULAR HGB CONC 31.3 g/dl (33.0-37.0); MEAN PLATELET VOLUME 9.2 fl (9.6-12.3); MONO # 0.5 10*3/uL (0.1-1.0); MONO % 8.6 % (3.0-9.0); NEUT # 3.6 10*3/uL (2.3-7.9); NEUT % 59.5 % (47.0-73.0); PLATELET COUNT AUTOMATED 209 10*3/uL (130-400); RED BLOOD COUNT 4.12 10*6/uL (4.50-5.90); RED CELL DISTRI WIDTH 11.9 % (0-14.5)
[2022-04-16 11:17] LABS: CREATININE 1.48 mg/dL (0.70-1.30); POTASSIUM 4.7 mmol/L (3.5-5.1)
[2022-04-16 11:22] LABS: FREE T4 0.78 ng/dl (0.76-1.46); THYROID STIM HORMONE (HS) 0.927 uIU/ml (0.358-4.75); TOTAL PROTEIN 6.8 gm/dL (6.4-8.2)
== END | disposition home or self-care (01) ==
LOC: LAB 10:37
PROVIDERS: ATTEND Internal Medicine
DX: Z12.5 Encounter for screening for malignant neoplasm of prostate (principal); I10 Essential (primary) hypertension; R73.9 Hyperglycemia, unspecified; E78.2 Mixed hyperlipidemia; Z13.89 Encounter for screening for other disorder; Z13.0 Encounter for screening for diseases of the blood and blood-forming organs and certain disorders involving the immune mechanism; R73.09 Other abnormal glucose; E55.9 Vitamin D deficiency, unspecified; Z13.1 Encounter for screening for diabetes mellitus; Z13.21 Encounter for screening for nutritional disorder; Z13.220 Encounter for screening for lipoid disorders; Z13.228 Encounter for screening for other metabolic disorders; Z13.29 Encounter for screening for other suspected endocrine disorder; Z13.6 Encounter for screening for cardiovascular disorders; Z13.9 Encounter for screening, unspecified

== ENCOUNTER → 2022-11-30 | Outpatient (CLI) | payer OTHER ==
[~2022-11-30] MED LIST changes: +AZITHROMYCIN500 M2 PO; +Ipratropium Brom3 ML NEB; +MEDROL DOSEPAK4 MG PO
== END | disposition home or self-care (01) ==
LOC: CARD 01:50
PROVIDERS: ATTEND Internal Medicine
DX: I08.1 Rheumatic disorders of both mitral and tricuspid valves (principal); R06.02 Shortness of breath; I10 Essential (primary) hypertension

== ENCOUNTER → 2022-12-30 | Outpatient (CLI) | payer OTHER | END | disposition home or self-care (01) | LOC: LAB 00:37 | PROVIDERS: ATTEND Urology | DX: C61 Malignant neoplasm of prostate (principal) ==

== ENCOUNTER → 2023-01-04 | Outpatient (CLI) | payer OTHER | END | disposition home or self-care (01) | LOC: US 01:08 | PROVIDERS: ATTEND Internal Medicine | DX: E04.1 Nontoxic single thyroid nodule (principal) ==

== ENCOUNTER → 2023-05-17 | Outpatient (CLI) | payer OTHER ==
[2023-05-17 16:58] LABS: ALKALINE PHOSPHATASE 52 U/L (46-116); BUN 12 mg/dl (9-23); CHLORIDE 104 mmol/L (98-107); CHOLESTEROL 178 mg/dL (<200); FREE T4 0.97 ng/dl (0.89-1.76); LDL CHOLESTEROL 80 mg/dL (9-159); POTASSIUM 4.3 mmol/L (3.4-5.1); SGPT/ALT 17 U/L (10-49); TOTAL PROTEIN 6.9 gm/dL (6.0-8.0); TRIGLYCERIDES 172 mg/dl (<150)
[2023-05-17 17:19] LABS: BASO % 0.5 % (0.0-1.0); EOS # 0.3 10*3/uL (0.0-0.4); EOS % 3.3 % (1.0-4.0); HEMATOCRIT 39.6 % (42.0-52.0); LYMPH # 1.9 10*3/uL (1.3-4.4); LYMPH % 24.6 % (27.0-41.0); MEAN CELL VOLUME 94.7 fl (80.0-94.0); MEAN CORPUSCULAR HGB 31.1 pg (27.0-31.0); MEAN CORPUSCULAR HGB CONC 32.8 g/dl (33.0-37.0); MEAN PLATELET VOLUME 9.1 fl (9.6-12.3); MONO # 0.6 10*3/uL (0.1-1.0); MONO % 7.8 % (3.0-9.0); NEUT % 63.5 % (47.0-73.0); PLATELET COUNT AUTOMATED 226 10*3/uL (130-400); RED BLOOD COUNT 4.18 10*6/uL (4.50-5.90); WHITE BLOOD COUNT 7.8 10*3/uL (4.8-10.8)
== END | disposition home or self-care (01) ==
LOC: LAB 16:11
PROVIDERS: ATTEND Internal Medicine
DX: I10 Essential (primary) hypertension (principal); J44.1 Chronic obstructive pulmonary disease with (acute) exacerbation; F41.1 Generalized anxiety disorder; F33.1 Major depressive disorder, recurrent, moderate; F33.0 Major depressive disorder, recurrent, mild; E55.9 Vitamin D deficiency, unspecified

== ENCOUNTER → 2023-05-25 | Outpatient (CLI) | payer OTHER | END | disposition home or self-care (01) | LOC: US 02:34 | PROVIDERS: ATTEND Internal Medicine | DX: N28.1 Cyst of kidney, acquired (principal) ==

== ENCOUNTER → 2023-07-06 | Outpatient (CLI) | payer OTHER | END | disposition home or self-care (01) | LOC: LAB 11:08 | PROVIDERS: ATTEND Urology | DX: C61 Malignant neoplasm of prostate (principal) ==

== ENCOUNTER → 2023-12-13 | Outpatient (CLI) | payer OTHER | END | disposition home or self-care (01) | LOC: LAB 01:49 | PROVIDERS: ATTEND Urology | DX: C61 Malignant neoplasm of prostate (principal) ==

== ENCOUNTER → 2024-08-20 | Outpatient (CLI) | payer OTHER ==
[2024-08-20 14:56] LABS: HEMATOCRIT 36.4 % (42.0-52.0); MEAN CELL VOLUME 96.3 fl (80.0-94.0); MEAN CORPUSCULAR HGB 30.2 pg (27.0-31.0); MEAN CORPUSCULAR HGB CONC 31.3 g/dl (33.0-37.0); MEAN PLATELET VOLUME 8.8 fl (9.6-12.3); RED BLOOD COUNT 3.78 10*6/uL (4.50-5.90); RED CELL DISTRI WIDTH 13.4 % (0-14.5); WHITE BLOOD COUNT 6.8 10*3/uL (4.8-10.8)
[2024-08-20 15:03] LABS: TOTAL PROTEIN 7.4 gm/dL (6.0-8.0)
== END | disposition home or self-care (01) ==
LOC: LAB 14:14
PROVIDERS: ATTEND Radiology Radiation Oncology
DX: Z12.5 Encounter for screening for malignant neoplasm of prostate (principal); C61 Malignant neoplasm of prostate

== ENCOUNTER → 2024-10-16 | Outpatient (CLI) | payer OTHER ==
[2024-10-16 15:02] LABS: BASO % 0.4 % (0.0-1.0); EOS # 0.2 10*3/uL (0.0-0.4); EOS % 2.1 % (1.0-4.0); HEMATOCRIT 38.5 % (42.0-52.0); MEAN CELL VOLUME 99.7 fl (80.0-94.0); MEAN CORPUSCULAR HGB 31.3 pg (27.0-31.0); MEAN CORPUSCULAR HGB CONC 31.4 g/dl (33.0-37.0); MEAN PLATELET VOLUME 8.8 fl (9.6-12.3); MONO # 0.6 10*3/uL (0.1-1.0); MONO % 8.2 % (3.0-9.0); NEUT % 76.3 % (47.0-73.0); PLATELET COUNT AUTOMATED 255 10*3/uL (130-400); RED BLOOD COUNT 3.86 10*6/uL (4.50-5.90); RED CELL DISTRI WIDTH 12.7 % (0-14.5); WHITE BLOOD COUNT 7.8 10*3/uL (4.8-10.8)
[2024-10-16 15:30] LABS: FREE T4 1.21 ng/dl (0.89-1.76); POTASSIUM 4.1 mmol/L (3.4-5.1); TOTAL PROTEIN 7.5 gm/dL (6.0-8.0)
[2024-10-16 15:46] LABS: VITAMIN D, 25-HYDROXY 30.3 ng/mL (30-100)
== END | disposition home or self-care (01) ==
LOC: LAB 14:31
PROVIDERS: ATTEND Internal Medicine
DX: I10 Essential (primary) hypertension (principal); R73.9 Hyperglycemia, unspecified; E78.2 Mixed hyperlipidemia; R73.03 Prediabetes; R53.83 Other fatigue; E55.9 Vitamin D deficiency, unspecified; E53.9 Vitamin B deficiency, unspecified

== ENCOUNTER → 2024-11-12 | Outpatient (CLI) | payer OTHER | END | disposition home or self-care (01) | LOC: LAB 13:28 | PROVIDERS: ATTEND Urology | DX: C61 Malignant neoplasm of prostate (principal) ==

== ENCOUNTER 2024-12-24 12:28 | Emergency (ER) | payer OTHER ==
[~2024-12-24] VITALS: Ht 177.8 cm; Wt 70.3 kg
[2024-12-24] MEDS ORDERED: PEPCID40 MG PO (13:19)
[2024-12-24] MEDS ORDERED: PREDNISONE10 M1 PO (13:19)
[2024-12-24] MEDS ORDERED: methylPREDNISolone acetate 40 MG/ML VIAL IM ONE (13:20)
== END 2024-12-24 13:50 | disposition home or self-care (01) ==
LOC: ED 12:28
DX: L58.9 Radiodermatitis, unspecified (principal); F32.A Depression, unspecified; F41.9 Anxiety disorder, unspecified; E78.5 Hyperlipidemia, unspecified; K21.9 Gastro-esophageal reflux disease without esophagitis; J44.9 Chronic obstructive pulmonary disease, unspecified; Z85.46 Personal history of malignant neoplasm of prostate

== ENCOUNTER → 2025-01-23 | Outpatient (CLI) | payer OTHER ==
[~2025-01-23] MED LIST changes: +PEPCID40 MG PO; +PREDNISONE10 M1 PO
== END | disposition home or self-care (01) ==
LOC: CARD 00:31
PROVIDERS: ATTEND Internal Medicine
DX: I47.10 Supraventricular tachycardia, unspecified (principal); I51.7 Cardiomegaly

== ENCOUNTER → 2025-02-08 | Outpatient (CLI) | payer OTHER ==
[~2025-02-08] MED LIST changes: +Regadenoson 0.4 MG/5 ML SYR IV ONE; +Technetium Tc 99M Tetrofosmi 0.23 MG KIT IJ SCH
== END | disposition home or self-care (01) ==
LOC: CARD 02-01 07:00
PROVIDERS: ATTEND Internal Medicine
DX: R07.9 Chest pain, unspecified (principal)

== ENCOUNTER 2025-03-18 11:04 | Emergency (ER) | payer OTHER ==
[~2025-03-18] VITALS: Wt 70.3 kg
[~2025-03-18 11:04] MED LIST changes: -Regadenoson 0.4 MG/5 ML SYR IV ONE; -Technetium Tc 99M Tetrofosmi 0.23 MG KIT IJ SCH
[2025-03-18] MEDS ORDERED: PREDNISONE50 MG PO (11:49)
[2025-03-18] MEDS ORDERED: methylPREDNISolone sod succ 125 MG VIAL IM ONE (11:50)
[2025-03-18] MEDS ORDERED: Water, Sterile 10 ML VIAL ONE (12:10)
== END 2025-03-18 11:57 | disposition home or self-care (01) ==
LOC: ED 11:04
DX: L23.7 Allergic contact dermatitis due to plants, except food (principal); I10 Essential (primary) hypertension; K21.9 Gastro-esophageal reflux disease without esophagitis; F32.A Depression, unspecified; F41.9 Anxiety disorder, unspecified; Z79.82 Long term (current) use of aspirin; Z79.899 Other long term (current) drug therapy; Z88.2 Allergy status to sulfonamides; Z88.8 Allergy status to other drugs, medicaments and biological substances; Z98.890 Other specified postprocedural states

== ENCOUNTER → 2025-04-01 | Outpatient (CLI) | payer OTHER ==
[2025-04-01 08:19] LABS: HEMATOCRIT 37.5 % (42.0-52.0)
[2025-04-01 08:43] LABS: POTASSIUM 4.2 mmol/L (3.4-5.1)
== END | disposition home or self-care (01) ==
LOC: LAB 02:55
PROVIDERS: ATTEND Internal Medicine Cardiovascular Disease
DX: Z01.812 Encounter for preprocedural laboratory examination (principal); Z79.82 Long term (current) use of aspirin

== ENCOUNTER → 2025-05-09 | Outpatient (CLI) | payer OTHER | END | disposition home or self-care (01) | LOC: LAB 00:25 | PROVIDERS: ATTEND Urology | DX: C61 Malignant neoplasm of prostate (principal) ==

== ENCOUNTER → 2025-05-15 | Outpatient (CLI) | payer OTHER | END | disposition home or self-care (01) | LOC: US 05-09 15:00 | PROVIDERS: ATTEND Internal Medicine | DX: I65.23 Occlusion and stenosis of bilateral carotid arteries (principal); I10 Essential (primary) hypertension; R42 Dizziness and giddiness; E04.1 Nontoxic single thyroid nodule ==

== ENCOUNTER 2025-06-25 10:50 | Emergency (ER) | payer OTHER ==
[~2025-06-25] VITALS: Ht 177.8 cm; Wt 71.2 kg
[2025-06-25] MEDS ORDERED: diphenhydrAMINE hydrochloride 25 MG CAP PO ONE (12:05)
[2025-06-25] MEDS ORDERED: methylPREDNISolone sod succ 1,000 MG/16 ML VIAL IM ONE (12:05)
[2025-06-25] MEDS ORDERED: FAMOTIDINE 20 MG TAB PO ONE (12:05)
[2025-06-25] MEDS ORDERED: KENALOG 0.1%80 GM T (13:11)
[2025-06-25] MEDS ORDERED: MEDROL DOSEPAK4 MG PO (13:11)
== END 2025-06-25 13:16 | disposition home or self-care (01) ==
LOC: ED 10:50
DX: L25.9 Unspecified contact dermatitis, unspecified cause (principal); Z88.1 Allergy status to other antibiotic agents; Z88.8 Allergy status to other drugs, medicaments and biological substances; Z91.018 Allergy to other foods

== ENCOUNTER → 2025-08-06 | Outpatient (CLI) | payer OTHER ==
[~2025-08-06] MED LIST changes: +KENALOG 0.1%80 GM T
[2025-08-06 12:13] LABS: BASO # 0.0 10*3/uL (0.0-0.1); BASO % 0.4 % (0.0-1.0); EOS # 0.1 10*3/uL (0.0-0.4); EOS % 0.7 % (1.0-4.0); MEAN CELL VOLUME 95.3 fl (80.0-94.0); MEAN CORPUSCULAR HGB 30.6 pg (27.0-31.0); MEAN PLATELET VOLUME 9.6 fl (9.6-12.3); MONO # 1.2 10*3/uL (0.1-1.0); MONO % 10.6 % (3.0-9.0); NEUT # 8.5 10*3/uL (2.3-7.9); NEUT % 76.2 % (47.0-73.0); NUCLEATED RED BLOOD CELL 0.0 % (0.0-0.0); NUCLEATED RED BLOOD CELL 0.0 10*3/uL (0.0-0.0); PLATELET COUNT AUTOMATED 298 10*3/uL (130-400); RED CELL DISTRI WIDTH 12.1 % (0-14.5)
[2025-08-06 12:41] LABS: BUN 29.0 mg/dl (9-23); FREE T4 1.2 ng/dl (0.89-1.76); LDL CHOLESTEROL 79.0 mg/dL (9-159); SGPT/ALT 41.0 U/L (5-49)
[2025-08-06 12:44] LABS: VITAMIN D, 25-HYDROXY 30.5 ng/mL (30-100)
== END | disposition home or self-care (01) ==
LOC: LAB 11:21
PROVIDERS: ATTEND Internal Medicine
DX: I12.9 Hypertensive chronic kidney disease with stage 1 through stage 4 chronic kidney disease, or unspecified chronic kidney disease (principal); N18.31 Chronic kidney disease, stage 3a; E78.2 Mixed hyperlipidemia; J44.1 Chronic obstructive pulmonary disease with (acute) exacerbation; R73.9 Hyperglycemia, unspecified; R73.03 Prediabetes; R97.20 Elevated prostate specific antigen [PSA]; E55.9 Vitamin D deficiency, unspecified; E53.9 Vitamin B deficiency, unspecified; R53.83 Other fatigue; Z85.46 Personal history of malignant neoplasm of prostate; Z79.891 Long term (current) use of opiate analgesic; Z13.0 Encounter for screening for diseases of the blood and blood-forming organs and certain disorders involving the immune mechanism; Z13.1 Encounter for screening for diabetes mellitus; Z13.21 Encounter for screening for nutritional disorder; Z13.220 Encounter for screening for lipoid disorders; Z13.228 Encounter for screening for other metabolic disorders; Z13.29 Encounter for screening for other suspected endocrine disorder; Z13.6 Encounter for screening for cardiovascular disorders; Z13.89 Encounter for screening for other disorder; Z13.9 Encounter for screening, unspecified

== ENCOUNTER → 2025-08-19 | Outpatient (CLI) | payer OTHER | END | disposition home or self-care (01) | LOC: MRI 02:10 | PROVIDERS: ATTEND Internal Medicine | DX: M51.360 Other intervertebral disc degeneration, lumbar region with discogenic back pain only (principal); M51.379 Other intervertebral disc degeneration, lumbosacral region without mention of lumbar back pain or lower extremity pain; M47.816 Spondylosis without myelopathy or radiculopathy, lumbar region; M48.07 Spinal stenosis, lumbosacral region ==